=== PATIENT | female | born 1950 | race Caucasian/White ===

== ENCOUNTER → 2017-06-13 | Outpatient (CLI) | payer MEDICARE, OTHER ==
[~2017-06-13] MED LIST: ANUCORT-HC25 MG RE; AVELOX400 MG PO; FLAGYL500 MG; FLAGYL500 MG PO; KEFLEX500 MG; LEVAQUIN 500 M500 M2 OR; LIDOCAINE/PRILOCAINE TD; LISINOPRIL-HCT1 EACH PO; MIRALAX255 GM OR; NORCO 5-325 TA1 EACH PO; NYSTATIN 1100000 U/M; PRILOSEC 20 MG20 MG PO; VANCOMYCIN; VANCOMYCIN100 MG/ML; XANAX 0.5 MG0.5 M1 PO; [UNRECOGNIZED DRUG - OTHER] PO
== END ==
LOC: M.RAD 13:55
DX: M85.88 Other specified disorders of bone density and structure, other site (principal); N91.2 Amenorrhea, unspecified; N17.9 Acute kidney failure, unspecified; Z90.710 Acquired absence of both cervix and uterus; Z85.3 Personal history of malignant neoplasm of breast; Z78.0 Asymptomatic menopausal state

== ENCOUNTER → 2019-09-21 | Outpatient (CLI) | payer MEDICARE, OTHER | LOC: M.RAD 08:47 | PROVIDERS: ATTEND Internal Medicine Hematology & Oncology | DX: C50.919 Malignant neoplasm of unspecified site of unspecified female breast (principal); M85.88 Other specified disorders of bone density and structure, other site ==

== ENCOUNTER → 2020-10-05 | Outpatient (CLI) | payer MEDICARE, OTHER | LOC: M.RAD 08:51 | DX: M85.88 Other specified disorders of bone density and structure, other site (principal); M81.0 Age-related osteoporosis without current pathological fracture ==